=== PATIENT | female | born 1960 | race Caucasian/White ===

== ENCOUNTER 2016-12-15 11:07 | Observation (INO) | payer OTHER ==
[~2016-12-15] VITALS: Ht 170.2 cm; Wt 84.6 kg
[2016-12-15] MEDS ORDERED: IV NORMAL SALINE 1000ML BAG 1,000 ML IV SCH (11:26)
[2016-12-15] MEDS ORDERED: ASPIRIN CHEWABLE 81 MG TABLET. PO ONE (11:30)
[2016-12-15] MEDS ORDERED: 0.9 % SODIUM CHLORIDE 10 ML DISP.SYRIN. IV PRN (11:30)
--- NOTE | 2016-12-15 11:47 | PHYS DOC ---
Past Medical History Past Medical History: Endometriosis Past Surgical History: Appendectomy, , Other Additional Past Surgical Histo: laproscopy, breast augmentation Alcohol Use: None Drug Use: None Adult General Chief Complaint Chief Complaint: CHEST PAIN HPI HPI Is a pleasant 56-year-old patient female with no major medical problems with the exception of endometriosis presents with chest pain that began about an hour prior to arrival. She was at rest working in the laundry room putting stuff in the laundry when she began having a squeezing chest pressure underneath the left breast that radiated to the left jaw and left shoulder. She described as a pressure with mild radiation to the back. It did not make her short of breath, did not make her dizzy or diaphoretic. It was uncomfortable described as a squeezing pressure. It was not sharp in nature and is now resolved. It lasted all of 45 minutes. She has noted over the last several days of indigestion and increased reflux which she's never suffered from in the past. She denies any dyspnea on exertion, denies any cough, runny nose, URI symptoms, night sweats, fevers, chills, vomiting, nausea, diarrhea. She had noted in her history that her left calf and leg were swollen and decreased of last several days. She denies any pain with walking or pain in her leg she denies any DVT risk factors. Patient is a significant family history of early heart disease in her parents. Differential diagnosis for chest pain: Pericarditis, myocarditis, endocarditis, pneumothorax, pneumonia, aortic dissection, esophageal spasm, esophagitis, peptic ulcer disease, acute coronary syndrome, mediastinitis, Boerhaave syndrome , musculoskeletal chest wall pain, costochondritis, intercostal strain, rib fracture, pulmonary contusion, pneumonitis, pleural effusion, pericardial effusion, pericardial tamponode, and pleurisy. Considered on arrival EKG, chest x-ray, ultrasound of the leg, d-dimer, troponin, CBC, CMP ordered immediately upon arrival. He also given aspirin orally her chest pain is 0 of 10. Review of Systems Review of Systems Constitutional: Denies fever or chills [] Eyes: Denies change in visual acuity, redness, or eye pain [] HENT: Denies nasal congestion or sore throat [] Respiratory: Denies cough or shortness of breath [] Cardiovascular: No additional information not addressed in HPI [] GI: Denies abdominal pain, nausea, vomiting, bloody stools or diarrhea [] : Denies dysuria or hematuria [] Musculoskeletal: Denies back pain or joint pain [] Integument: Denies rash or skin lesions [] Neurologic: Denies headache, focal weakness or sensory changes [] Endocrine: Denies polyuria or polydipsia [] Current Medications Current Medications Current Medications Medications (Trade) Dose Ordered Sig/Js Start Time Stop Time Status Last Admin Dose Admin Aspirin (Children'S Aspirin) 324 mg 1X ONCE 12/15/16 11:30 12/15/16 11:31 DC 12/15/16 11:49 324 MG Sodium Chloride (Normal Saline Flush) 10 ml QSHIFT PRN 12/15/16 11:30 Allergies Allergies Allergies Coded Allergies Type Severity Reaction Last Updated Verified No Known Drug Allergies 03/26/14 No Physical Exam Physical Exam This patient vital signs reviewed upon arrival noted elevated blood pressure 140 /73 Constitutional: Well developed, well nourished, no acute distress, non-toxic appearance. [] HENT: Normocephalic, atraumatic, bilateral external ears normal, oropharynx moist, no oral exudates, nose normal. [] Eyes: PERRLA, EOMI, conjunctiva normal, no discharge. [] Neck: Normal range of motion, no tenderness, supple, no stridor. [] Cardiovascular:Heart rate regular rhythm, no murmur no chest wall tenderness palpation. Lungs & Thorax: Bilateral breath sounds clear to auscultation [] Abdomen: Bowel sounds normal, soft, no tenderness, no masses, no pulsatile masses. [] Skin: Warm, dry, no erythema, no rash. [] Back: No tenderness, no CVA tenderness. [] Extremities: No tenderness, no cyanosis, no clubbing, ROM intact, no edema. She has no Homans sign brisk capillary refill +2 peripheral pulses +2 at the dorsalis pedis Neurologic: Alert and oriented X 3, normal motor function, normal sensory function, no focal deficits noted. [] Psychologic: Affect normal, judgement normal, mood normal. [] Current Patient Data Vital Signs Vital Signs Date Time Temp Pulse Resp B/P (MAP) Pulse Ox O2 Delivery O2 Flow Rate FiO2 12/15/16 11:11 98.2 74 20 140/73 (95) 98 Room Air 98.2 Lab Values Laboratory Tests Test 12/15/16 12:05 White Blood Count 5.9 x10^3/uL (4.0-11.0) Red Blood Count 4.24 x10^6/uL (3.50-5.40) Hemoglobin 12.9 g/dL (12.0-15.5) Hematocrit 37.2 % (36.0-47.0) Mean Corpuscular Volume 88 fL (79-100) Mean Corpuscular Hemoglobin 31 pg (25-35) Mean Corpuscular Hemoglobin Concent 35 g/dL (31-37) Red Cell Distribution Width 13.6 % (11.5-14.5) Platelet Count 206 x10^3/uL (140-400) Neutrophils (%) (Auto) 66 % (31-73) Lymphocytes (%) (Auto) 25 % (24-48) Monocytes (%) (Auto) 7 % (0-9) Eosinophils (%) (Auto) 2 % (0-3) Basophils (%) (Auto) 1 % (0-3) Neutrophils # (Auto) 3.9 x10^3uL (1.8-7.7) Lymphocytes # (Auto) 1.5 x10^3/uL (1.0-4.8) Monocytes # (Auto) 0.4 x10^3/uL (0.0-1.1) Eosinophils # (Auto) 0.1 x10^3/uL (0.0-0.7) Basophils # (Auto) 0.0 x10^3/uL (0.0-0.2) D-Dimer (Sayra) < 0.27 ug/mlFEU Sodium Level 144 mmol/L (136-145) Potassium Level 4.3 mmol/L (3.5-5.1) Chloride Level 108 mmol/L (98-107) H Carbon Dioxide Level 27 mmol/L (21-32) Anion Gap 9 (6-14) Blood Urea Nitrogen 10 mg/dL (7-20) Creatinine 0.8 mg/dL (0.6-1.0) Estimated GFR (Cockcroft-Gault) 73.7 Glucose Level 94 mg/dL (70-99) Calcium Level 8.1 mg/dL (8.5-10.1) L Magnesium Level 2.2 mg/dL (1.8-2.4) Total Bilirubin 0.5 mg/dL (0.2-1.0) Direct Bilirubin 0.2 mg/dL (0.0-0.2) Aspartate Amino Transferase (AST) 22 U/L (15-37) Alanine Aminotransferase (ALT) 25 U/L (14-59) Alkaline Phosphatase 98 U/L (46-116) Creatine Kinase 87 U/L (26-192) Creatine Kinase MB (Mass) 0.6 ng/mL (0.0-3.6) Creatine Kinase MB Relative Index 0.7 % (0-4) Troponin I Quantitative < 0.017 ng/mL (0.000-0.055) HV-Kkw-W-Type Natriuretic Peptide 155 pg/mL (0-124) H Total Protein 6.8 g/dL (6.4-8.2) Albumin 3.6 g/dL (3.4-5.0) Lipase 125 U/L (73-393) Thyroid Stimulating Hormone (TSH) 1.619 uIU/mL (0.358-3.74) Laboratory Tests 12/15/16 12:05 Laboratory Tests 12/15/16 12:05 EKG EKG [] KG timed 11:42 AM demonstrates normal sinus rhythm heart rate of 91. Normal of 146 arrest with of 78 QTC of 444 which is normal. Patient demonstrates a Q- wave in the anterior leads. Radiology/Procedures Radiology/Procedures [] IMAGING REPORT Signed PATIENT: VANGIE JAIN ACCOUNT: [id number] : 1960 LOCATION: ER AGE: 56 SEX: F EXAM STATUS: PRE ER ORD. PHYSICIAN: KIERAN RUBALCAVA MD REASON: chest pain PROCEDURE: PORTABLE CHEST 1V INDICATION: chest pain COMPARISON: 03/26/2014 FINDINGS: Single view of chest obtained. No focal airspace consolidation. Mild haziness lower lungs likely secondary to overlap of soft tissue structures. Mediastinal contour is unremarkable. No gross osseous destructive lesion. IMPRESSION: No focal airspace consolidation or edema. DICTATED and SIGNED BY: MG DE LOS SANTOS MD DATE: 12/15/16 7822 Course & Med Decision Making Course & Med Decision Making Pertinent Labs and Imaging studies reviewed. (See chart for details) she presents with chest pain of a concerning etiology given its squeezing pressure and radiation to the jaw and shoulder by concern is acute coronary syndrome until proven otherwise. She only had an hours with the pain prior to arrival despite having a negative EKG and negative troponin. She is pain-free at this time time is now 12:30 PM we talked about the limitations of the troponin at this time she is willing to be admitted to the hospital for rule out protocol. Extremity ultrasound at bedside completed at 12:45 PM this demonstrates no DVT no cervical turgor problems. Reviewed by me. Patient's CMP, CBC, chest x-ray are unremarkable. Pro BNP is mildly elevated at 1 55 although nonspecific her chest x-ray does not look like congestive heart failure. Differential diagnosis for chest pain: Pericarditis, myocarditis, endocarditis, pneumothorax, pneumonia, aortic dissection, esophageal spasm, esophagitis, peptic ulcer disease, acute coronary syndrome, mediastinitis, Boerhaave syndrome , musculoskeletal chest wall pain, costochondritis, intercostal strain, rib fracture, pulmonary contusion, pneumonitis, pleural effusion, pericardial effusion, pericardial tamponode, and pleurisy. Was considered upon arrival. Patient be ruled out as a low risk chest pain patient based on my heart score History: Highly suspicious 2 points moderately suspicious 1. slightly suspicious 0 point EKG: ST segment depression 2. nonspecific repolarization disturbance 1. normal 0 point Age: Greater than 65 2 points, 65-45 1., less than 45 years old 0 points Risk factors:> 3 risk factors 2 points, 1-2 risk factors one point, no risk factors 0 point Troponin: > 2 times normal 2 points, 1-2 times normal 1., normal limits 0 point Total score: Score % pts MACE/n MACE Policy 0-3 32% 1.9% 0.05% Discharge 4-6 51% 413/3136 13% 1.3% Observation Risk management 7-10 17% 518/1045 50% 2.8% Observation Treatment, CAG Test 12/15/16 12:05 Alanine Aminotransferase (ALT/SGPT) 25 U/L (14-59) Creatinine 0.8 mg/dL (0.6-1.0) UH-Cks-B-Type Natriuretic Peptide 155 pg/mL (0-124) Thyroid Stimulating Hormone (TSH) 1.619 uIU/mL (0.358-3.74) [] Although she is low risk with a significant family history and only one hour chest pain prior to arrival the sensitivity and specificity of a negative troponin at this time is not able to move her out at this time. Parking Meter Mechanic note: Internal medicine Parking Meter Mechanic called at of the service paged at 1:15 PM Consult called back at 1:15 PM Discussed the case I presented and they agreed with admission. Time of acceptance 1:15 p.m. Impression: Chest pain of unclear etiology Dragon Disclaimer Dragon Disclaimer This electronic medical record was generated, in whole or in part, using a voice recognition dictation system. Departure Departure Impression: Primary Impression: Chest pain Disposition: ADMITTED INPATIENT Admitting Physician: Other Condition: IMPROVED Referrals: ÓSCAR PALMER DO (PCP) KIERAN RUBALCAVA MD Dec 15, 2016 11:47
--- NOTE | 2016-12-15 11:56 | RAD ---
INDICATION: chest pain COMPARISON: 03/26/2014 FINDINGS: Single view of chest obtained. No focal airspace consolidation. Mild haziness lower lungs likely secondary to overlap of soft tissue structures. Mediastinal contour is unremarkable. No gross osseous destructive lesion. IMPRESSION: No focal airspace consolidation or edema.
[2016-12-15 12:22] LABS: BASO % 1 % (0-3); EOS % 2 % (0-3); HEMATOCRIT 37.2 % (36.0-47.0); HEMOGLOBIN 12.9 g/dL (12.0-15.5); LYMPH # 1.5 x10^3/uL (1.0-4.8); LYMPH % 25 % (24-48); MEAN CORPUSCULAR HEMOGLOBIN 31 pg (25-35); MEAN CORPUSCULAR HGB CONC 35 g/dL (31-37); MEAN CORPUSCULAR VOLUME 88 fL (79-100); MONO % 7 % (0-9); NEUT % 66 % (31-73); PLATELET COUNT 206 x10^3/uL (140-400); RED BLOOD COUNT 4.24 x10^6/uL (3.50-5.40); RED CELL DISTRIBUTION WIDTH 13.6 % (11.5-14.5); WHITE BLOOD COUNT 5.9 x10^3/uL (4.0-11.0)
[2016-12-15 12:30] LABS: CALCIUM 8.1 mg/dL (8.5-10.1); CREATININE 0.8 mg/dL (0.6-1.0); GFR 73.7; POTASSIUM 4.3 mmol/L (3.5-5.1)
[2016-12-15 12:36] LABS: ALBUMIN 3.6 g/dL (3.4-5.0); DIRECT BILIRUBIN 0.2 mg/dL (0.0-0.2); MAGNESIUM 2.2 mg/dL (1.8-2.4); TOTAL BILIRUBIN 0.5 mg/dL (0.2-1.0); TOTAL PROTEIN 6.8 g/dL (6.4-8.2)
[2016-12-15 12:45] LABS: CKMB MASS 0.6 ng/mL (0.0-3.6)
[2016-12-15] MEDS ORDERED: NITROGLYCERIN SUBLINGUAL 0.4 MG BOTTLE OF 25. SL PRN (13:45)
--- NOTE | 2016-12-15 13:54 | RAD ---
INDICATION: Left ankle swelling COMPARISON: None. TECHNIQUE: Grayscale, color and doppler ultrasound images were obtained of the left lower extremity venous vasculature. LEFT: No thrombus identified in the common femoral vein, femoral vein, popliteal vein or visualized calf veins. IMPRESSION: 1. No thrombus identified in deep venous system of the left lower extremity.
--- NOTE | 2016-12-15 14:01 | PDOC2 ---
CARDIAC CONSULT DATE OF CONSULT Date of Consult DATE: 12/15/16 TIME: 13:58 REASON FOR CONSULT Reason for Consult: Chest pain REFERRING PHYSICIAN Referring Physician: Nicolasa SOURCE Source: Chart review, Patient HISTORY OF PRESENT ILLNESS HISTORY OF PRESENT ILLNESS This is a pleasant 56 yo femal admitted for complains of chest pain. Reports that 3 days ago she started having burning and indigestion feeling for 2 consecutive days. This was not long lasting but relieved by tums. Yesterday she was fine and lately has not noted any significant changes to her activity tolerance. Today she was doing laundry not too much heavy lifting but she felt midsternal crushing chest pain that lasted over an hour. This radiated as pressure to her left jaw to her ear and her shoulders. There was no associated nausea, SOA, CORTES, palpitations nor sustained dizziness. No prior CAD, VTE, syncope, falls or any injury. 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 She does not take any medications. Denies any recent long distance travel, prior CA, nor chronic NSAID use. PAST MEDICAL HISTORY Cardiovascular: No pertinent hx Pulmonary: No pertinent hx CENTRAL NERVOUS SYSTEM: Other (No pertinent history) GI: No pertinent hx Heme/Onc: No pertinent hx Hepatobiliary: No pertinent hx Psych: No pertinent hx Musculoskeletal: Other (No pertinent history) Rheumatologic: No pertinent hx Infectious disease: No pertinent hx ENT: No pertinent hx Renal/: No pertinent hx Endocrine: Other (postmenopausal) Dermatology: No pertinent hx PAST SURGICAL HISTORY Past Surgical History: Appendectomy, Other (laparoscopic surgery to eliminate endometriotic lesions; breast augmentation) FAMILY HISTORY Family History: Coronary Artery Disease (father LM [place] late 50s), Heart Disease (mother with CHF), Other (sister cardiomyopathy in her late 30s) SOCIAL HISTORY Smoke: No ALCOHOL: none Drugs: None Lives: with Family CURRENT MEDICATIONS CURRENT MEDICATIONS Current Medications Medications (Trade) Dose Ordered Sig/Js Route PRN Reason Start Time Stop Time Status Last Admin Dose Admin Aspirin (Children'S Aspirin) 324 mg 1X ONCE PO 12/15/16 11:30 12/15/16 11:31 DC 12/15/16 11:49 Sodium Chloride 1,000 ml @ 1,000 mls/hr Q1H IV 12/15/16 11:26 12/15/16 12:25 DC 12/15/16 11:49 ALLERGIES ALLERGIES: Coded Allergies: No Known Drug Allergies (Unverified , 03/26/14) ROS Review of System 14 point ROS evaluated with pertinent positives noted per HPI PHYSICAL EXAM General: Alert, Oriented X3, Cooperative, No acute distress HEENT: Atraumatic, Mucous membr. moist/pink Lungs: Clear to auscultation, Normal air movement Heart: Regular rate, Normal S1, Normal S2, No murmurs Abdomen: Normal bowel sounds, Soft, No tenderness Extremities: No cyanosis, No edema Skin: No breakdown, No significant lesion Neuro: Normal speech, Sensation intact Psych/Mental Status: Mental status NL, Mood NL MUSCULOSKELETAL: Osteoarthritic changes both hands VITALS VITALS Vital Signs Date Time Temp Pulse Resp B/P (MAP) Pulse Ox O2 Delivery O2 Flow Rate FiO2 12/15/16 11:11 98.2 74 20 140/73 (95) 98 Room Air 98.2 LABS Lab: Laboratory Tests Test 12/15/16 12:05 White Blood Count 5.9 x10^3/uL (4.0-11.0) Red Blood Count 4.24 x10^6/uL (3.50-5.40) Hemoglobin 12.9 g/dL (12.0-15.5) Hematocrit 37.2 % (36.0-47.0) Mean Corpuscular Volume 88 fL (79-100) Mean Corpuscular Hemoglobin 31 pg (25-35) Mean Corpuscular Hemoglobin Concent 35 g/dL (31-37) Red Cell Distribution Width 13.6 % (11.5-14.5) Platelet Count 206 x10^3/uL (140-400) Neutrophils (%) (Auto) 66 % (31-73) Lymphocytes (%) (Auto) 25 % (24-48) Monocytes (%) (Auto) 7 % (0-9) Eosinophils (%) (Auto) 2 % (0-3) Basophils (%) (Auto) 1 % (0-3) Neutrophils # (Auto) 3.9 x10^3uL (1.8-7.7) Lymphocytes # (Auto) 1.5 x10^3/uL (1.0-4.8) Monocytes # (Auto) 0.4 x10^3/uL (0.0-1.1) Eosinophils # (Auto) 0.1 x10^3/uL (0.0-0.7) Basophils # (Auto) 0.0 x10^3/uL (0.0-0.2) D-Dimer (Sayra) < 0.27 ug/mlFEU Sodium Level 144 mmol/L (136-145) Potassium Level 4.3 mmol/L (3.5-5.1) Chloride Level 108 mmol/L (98-107) Carbon Dioxide Level 27 mmol/L (21-32) Anion Gap 9 (6-14) Blood Urea Nitrogen 10 mg/dL (7-20) Creatinine 0.8 mg/dL (0.6-1.0) Estimated GFR (Cockcroft-Gault) 73.7 Glucose Level 94 mg/dL (70-99) Calcium Level 8.1 mg/dL (8.5-10.1) Magnesium Level 2.2 mg/dL (1.8-2.4) Total Bilirubin 0.5 mg/dL (0.2-1.0) Direct Bilirubin 0.2 mg/dL (0.0-0.2) Aspartate Amino Transf (AST/SGOT) 22 U/L (15-37) Alanine Aminotransferase (ALT/SGPT) 25 U/L (14-59) Alkaline Phosphatase 98 U/L (46-116) Creatine Kinase 87 U/L (26-192) Creatine Kinase MB (Mass) 0.6 ng/mL (0.0-3.6) Creatine Kinase MB Relative Index 0.7 % (0-4) Troponin I Quantitative < 0.017 ng/mL (0.000-0.055) ZW-Myf-T-Type Natriuretic Peptide 155 pg/mL (0-124) Total Protein 6.8 g/dL (6.4-8.2) Albumin 3.6 g/dL (3.4-5.0) Lipase 125 U/L (73-393) Thyroid Stimulating Hormone (TSH) 1.619 uIU/mL (0.358-3.74) ASSESSMENT/PLAN ASSESSMENT/PLAN 1. Chest pain: initial troponin normal. EKG SR with possible Brugada morphology 2. GERD 3. Family hx of CVD: Sister had cardiomyopathy in her late 30ss requiring AICD, Father [place] to LM late 50s, Mother also had heart disease Recommendations 1. TTE today. MPI tomorrow. Repeat EKG tomorrow. 2. Trend troponin, check TSH, and lipids 3. Start on 'ECASA. Start on PPI Problems: FELTON RON APRN Dec 15, 2016 14:00
[2016-12-15 15:19] VITALS: BP 127/53
--- NOTE | 2016-12-15 15:24 | EKG ---
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
[2016-12-15] MEDS ORDERED: IOHEXOL 300 MG/ML 75 ML VIAL IV ONE (17:00)
[2016-12-15] MEDS ORDERED: CONTRAST GIVEN MC PRN (17:15)
[2016-12-15] MEDS: PANTOPRAZOLE 40 MG TABLET.DR. PO SCH (17:46)
--- NOTE | 2016-12-15 17:54 | CARD ---
APPROVED REPORT EXAM: Two-dimensional and M-mode echocardiogram with Doppler and color Doppler. Other Information Quality : GoodHR: 61bpm Rhythm : NSR INDICATION Chest Pain 2D DIMENSIONS RVDd2.5 (2.9-3.5cm)Left Atrium(2D)3.6 (1.6-4.0cm) IVSd0.8 (0.7-1.1cm)Aortic Root(2D)2.6 (2.0-3.7cm) LVDd4.8 (3.9-5.9cm)LVOT Diameter2.1 (1.8-2.4cm) PWd0.8 (0.7-1.1cm)LVDs3.3 (2.5-4.0cm) FS (%) 30.4 %SV61.0 ml LVEF(%)57.8 (>50%) Aortic Valve AoV Peak Shahram.129.3cm/sAoV VTI30.7cm AO Peak GR.6.7mmHgLVOT Peak Shahram.101.5cm/s AO Mean GR.4mmHgAVA (VMAX)2.73cm2 Mitral Valve MV E Umtnrtxz52.0cm/sMV DECEL YANY677vw MV A Jswsvtfd45.2cm/sE/A Ratio1.5 MV A [id number] Pulmonary Valve PV Peak Zzuxtnhv898.1cm/s Pulmonary Vein S1 Lenaygsl75.9cm/sD2 Hqxnmcyp76.6cm/s PVa hgsxcsoq13vlib LEFT VENTRICLE The left ventricle is normal size. There is normal left ventricular wall thickness. The left ventricu lar systolic function is normal and the ejection fraction is within normal range. The Ejection Fracti on is 55-60%. There is normal LV segmental wall motion. The left ventricular diastolic function and f illing is normal for age. RIGHT VENTRICLE The right ventricle is normal size. There is normal right ventricular wall thickness. The right ventr icular systolic function is normal. ATRIA The left atrium size is normal. The right atrium size is normal. The interatrial septum is intact wit h no evidence for an atrial septal defect or patent foramen ovale as noted on 2-D or Doppler imaging. AORTIC VALVE The aortic valve is trileaflet. Doppler and Color Flow revealed no significant aortic regurgitation. There is no significant aortic valvular stenosis. MITRAL VALVE The mitral valve leaflets are mildly thickened. There is no evidence of mitral valve prolapse. There is no mitral valve stenosis. Doppler and Color Flow revealed trace mitral regurgitation. TRICUSPID VALVE Doppler and Color Flow revealed trace tricuspid regurgitation. Unable to determine pulmonary artery p ressure at exam time. PULMONIC VALVE Doppler and Color Flow revealed trace pulmonic valvular regurgitation. There is no pulmonic valvular stenosis. GREAT VESSELS The aortic root is normal in size. The ascending aorta is normal in size. The pulmonary artery is nor mal. The IVC is normal in size and collapses >50% with inspiration. PERICARDIAL EFFUSION There is no evidence of significant pericardial effusion. Critical Notification Critical Value: No <Conclusion> The left ventricular systolic function is normal and the ejection fraction is within normal range. Th e Ejection Fraction is 55-60%. There is normal LV segmental wall motion.
[2016-12-15 19:00] VITALS: BP 110/53
--- NOTE | 2016-12-15 20:58 | HP ---
ADMIT DATE: 12/15/2016 CHIEF COMPLAINT: Chest pain. HISTORY OF PRESENT ILLNESS: The patient is a 56-year-old woman without any medical issues, who presented to the Emergency Room with central chest pain. She describes pain starting in the middle of her chest and crushing type, radiating into both sides as well as into her neck up to her left ear. She denies any ongoing diaphoresis or nausea with this, but did experience some shortness of breath and difficulties swallowing at the time. She observed the pain for approximately 30 minutes and decided to go to the Emergency Room. Pain actually spontaneously resolved by the time she got to the ER. She had not taken any medications at home, received aspirin in the Emergency Room after pain had already have resolved. She denies ever having this type of pain in the past. However, had a different quality type chest pain about a couple of years ago, which actually had prompted her cardiac workup here with event monitoring, which apparently did not reveal any abnormality. PAST MEDICAL HISTORY: None. FAMILY HISTORY: Positive for heart disease in father, mother as well as sister have CHF and multiple other family members also with heart disease. Father and sister with diabetes. 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 No toxic habits. ALLERGIES: No known drug allergies. MEDICATIONS: None. REVIEW OF SYSTEMS: Positive as per HPI. Currently, she is asymptomatic in entire organ system review. PHYSICAL EXAMINATION: VITAL SIGNS: From today show a blood pressure of 127/53, heart rate at 55, respiratory rate at 18. She is afebrile. GENERAL: This is a well-nourished 56-year-old woman, alert and oriented, in no acute distress, slightly anxious. HEENT: Shows no scleral icterus. NECK: Supple, without any JVD or lymphadenopathy. LUNGS: Clear to auscultation bilaterally. HEART: Regular rate and rhythm. ABDOMEN: Has positive bowel sounds, soft, no tenderness to palpation including the epigastrium. EXTREMITIES: Show no edema. SKIN: Warm, soft and dry without any rash. LABORATORY DATA: CBC with a WBC of 5.9, hemoglobin 12.9, platelets of 206. Chemistries with a BUN and creatinine of 10 and 0.8, normal electrolytes, normal LFTs. Initial troponin negative. TSH at 1.6. IMAGING: CTA of the chest was obtained, but report is pending. ____ for echocardiogram. ASSESSMENT AND PLAN: The patient is a 56-year-old woman with a positive family history for heart disease, who presents with a suspicious chest pain. Cardiology has been consulted to help delineate her cardiac status. Enzymes will be obtained serially and she is on tele. She will undergo stress testing in the morning. In the meantime, further risk factors will also be ruled out including diabetes and hyperlipidemia. JAVON TORREZ MD DR: UR/nts JOB#: [id number] / [id number] NICOLE
[2016-12-15 23:00] VITALS: BP 105/47
--- NOTE | 2016-12-16 05:30 | EKG ---
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
[2016-12-16 07:00] VITALS: BP 120/60
[2016-12-16] MEDS ORDERED: ASPIRIN ENTERIC COATED 81 MG TABLET.DR. PO SCH (08:00)
[2016-12-16] MEDS ORDERED: REGADENOSON 0.4 MG/5 ML DISP.SYRIN. IV ONE (09:30)
--- NOTE | 2016-12-16 09:32 | RAD ---
Indication severe chest pain. Evaluate for pulmonary embolus or aortic abnormality. Axial contrast imaging through the chest was performed. Approximately 75 cc of Omnipaque 300 was administered intravenously. MIP images were generated and reviewed. No prior CT imaging of the chest is available. The examination is being made available to me, for first interpretation, at 0920, 07/17/2016. Imaging through the upper abdomen shows no acute finding. There is a low-density 1.5 cm mass in the liver most compatible with an incidental cyst. Bilateral breast implants are noted. There is a slightly enlarged soft tissue mass in the left axilla probably reflecting a lymph node. It measures approximately 13 mm in greatest dimension. If mammography has not been recently performed this should be considered. The thoracic aorta appears unremarkable. There is no significant hilar or mediastinal adenopathy. The study is negative for pulmonary embolus. No acute parenchymal infiltrate is seen. There is no dominant soft tissue mass seen in the chest. IMPRESSION: No acute finding seen in the chest. 13 mm soft tissue mass in the left axilla probably reflecting a lymph node. If mammography has not been recently performed this should be considered PQRS Compliance Statement: One or more of the following individualized dose reduction techniques were utilized for this examination: 1. Automated exposure control 2. Adjustment of the mA and/or kV according to patient size 3. Use of iterative reconstruction technique
[2016-12-16] MEDS: PANTOPRAZOLE 40 MG TABLET.DR. PO SCH (10:45)
[2016-12-16 11:00] VITALS: BP 112/53
--- NOTE | 2016-12-16 13:36 | RAD ---
APPROVED REPORT Test Type: Pharmacological Stress Nurse/Tech: michael sullivan Test Indications: chest pain Cardiac History: NONE STATED, SEE EHR Medications: SEE EHR Medical History: NONE STATED,SEE EHR Resting ECG: SR Resting Heart Rate: 63 bpm Resting Blood Pressure: 115/54mmHg Pretest Chest Pain: No chest pain Nurse/Tech Notes LUNG SOUNDS CLEAR Consent: The procedure was explained to the patient in lay terms. Informed consent was witnessed. Mike eout was entered into [employer]. History and Stress Test performed by KENNY Har[facility]. Details Pharmacologic stress testing was performed using 0.4mg per 5ml of regadenoson given intravenously ove r 7-10 seconds. Stress Symptoms HEADACHE, NAUSEA, STOMACH CRAMP, FACIAL FLUSHING. POST EXERCISE Max HR: 115 bpm Max Blood Pressure: 133/55mmHg Chest Pain: No. Arrhythmia: No. ST Change: No. INTERPRETATION Stress EKG Conclusion: No evidence of stress induced EKG changes. Imaging Protocol IMAGE PROTOCOL: Rest Tc-99m/stress Tc-99m 1 day Rest: Stress: Viability: Radiopharm.Tc99m AqqfxitirVg87d Sestamibi Dose12.3mCi 32mCi Duration 15min. 10min. Img Date 12/16/2016 12/16/2016 Inj-Img Hxlo19okl. 90min. Rest Admin Site:IV - Right ForearmAdministrator:KENNY Harrington Stress Admin Site: IV - Right ForearmAdministrator: KENNY Harrington STRESS DATA End Diast. Vol.68.0mlAv. Heart Rate68.0bpm End Syst. Vol.10.0mlCO Index BSA0.0L/min Myocardial Tlwe929.0gEject. Gzljknzv72.0% Stress Rates Pk. Fill Rate3.59EDV/secLVtime Pk. Fill 230.50msec Pk. Empty Rate4.73ESV/secLVtime Pk. Blqyu637.49msec 05/30 Pk. Fill1.59EDV/sec Stress Scores Regional WT0.00Summed WT0.00 Regional WM0.00Summed WM0.00 The rest and stress images show normal perfusion, normal contraction and thickening. LV Perf. Quant 17 Seg. SSS0.00 17 Seg. SRS7.00 17 Seg. SDS0.00 Stress Defect Extent (% LAD)0.00Rest Defect Extent (% LAD)3.10Rev. Defect Extent (% LAD)0.00 Stress Defect Extent (% LCX) 0.00Rest Defect Extent (% LCX)33.80Rev. Defect Extent (% LCX)0.00 Stress Defect Extent (% RCA)0.00Rest Defect Extent (% RCA)0.00Rev. Defect Extent (% RCA)0.00 Stress Defect Extent (% KSENIA)0.00Rest Defect Extent (% KSENIA)12.00Rev. Defect Extent (% KSENIA)0.00 Other Information Quality:Good Risk Assessment: Low Risk Conclusion 1. No evidence of stress induced EKG changes. 2. Normal perfusion at stress/rest. 3. Low risk study. EF > 70%
[2016-12-16] MEDS ORDERED: PANT40TA5 PO (14:37)
--- NOTE | 2016-12-16 23:48 | DS ---
DATE OF DISCHARGE: 12/16/2016 CHIEF COMPLAINT: Chest pain. HOSPITAL COURSE: The patient is a 56-year-old woman without past medical history, but a family history positive for CAD, who presented to the Emergency Room with chest pain with some typical features. She was therefore admitted for rule-out ACS. Enzymes and EKGs were essentially normal and she was seen by Cardiology, who proceeded with MPI on 12/16/2016. This was without any signs of ischemia or other changes and she was therefore deemed stable for discharge to home. PHYSICAL EXAMINATION: VITAL SIGNS: From today, show a blood pressure of 112/53, heart rate of 61, and respiratory rate at 22. GENERAL: This is an overweight 56-year-old woman, alert and oriented, in no acute distress. LUNGS: Clear. HEART: Regular rate and rhythm. ABDOMEN: Has positive bowel sounds, soft, and nontender. EXTREMITIES: Show no edema. DISCHARGE DATE: 12/16/2016. DISCHARGE DIAGNOSES: Chest pain, gastroesophageal reflux disease. DISCHARGE DISPOSITION: To home. DISCHARGE CONDITION: Improved. DISCHARGE MEDICATIONS: Please refer to MAR. DISCHARGE INSTRUCTIONS: The patient will follow up with her primary care physician as needed. JAVON TORREZ MD DR: UR/nts JOB#: [id number] / [id number] ÓSCAR Chambers DO MTDJen
== END 2016-12-16 14:30 | disposition home or self-care (01) ==
LOC: ER 11:07 → 5 SOUTH 13:20
PROVIDERS: ADMIT Internal Medicine Hematology & Oncology; ATTEND Internal Medicine Hematology & Oncology
DX: R07.89 Other chest pain (principal); K21.9 Gastro-esophageal reflux disease without esophagitis; Z90.49 Acquired absence of other specified parts of digestive tract; N80.9 Endometriosis, unspecified
CPT/HCPCS: 36415; 71010; 71275; 78452; 80048; 80061; 80076; 82553; 83690; 83735; 83880; 84443; 84484; 85027; 85379; 93005; 93017; 93306; 93971; 96360; 99285; A9500; G0378; J2785; J7030; Q9967; 96374; 96375; 96376; G0379